=== PATIENT | male | born 1935 | race Caucasian/White ===

== ENCOUNTER 2016-05-03 10:55 | Inpatient (IN) | payer MEDICARE, BC ==
[2016-05-03] VITALS (9 sets, daily range): BP systolic 117–132; BP diastolic 61–78; BMI 16.7
[~2016-05-03] VITALS: Ht 172.7 cm; Wt 49.9 kg
[~2016-05-03 10:55] MED LIST: PERCOCET 5-3251 TAB PO; REVLIMID25 MG PO; ROBAXIN-750750 MG PO; ULTRAM50 MG PO; XANAX0.25 MG PO; ZYLOPRIM300 MG PO
[2016-05-03 11:28] LABS: APPEARANCE CLOUDY (CLEAR); BILIRUBIN 1+ (NEGATIVE); COLOR DK YELLOW (YELLOW); GLUCOSE NEGATIVE (NEGATIVE); KETONE NEGATIVE (NEGATIVE); LEUKOCYTE ESTERASE NEGATIVE (NEGATIVE); NITRITE NEGATIVE (NEGATIVE); PROTEIN TRACE mg/dL (NEGATIVE); RED CELLS - URINE 0-5 /hpf (0-5); SPECIFIC GRAVITY 1.015 (1.005-1.020); UROBILINOGEN NORMAL (NORMAL); WHITE CELLS - URINE NSEEN /hpf (0-5)
[2016-05-03 12:19] LABS: BASOPHILS 0 % (0.0-2.0); EOSINOPHILS 0.2 % (0-7); HEMOGLOBIN 8.4 g/dL (13.5-17.5); LYMPHOCYTES 14.1 % (15-50); MCH 34.3 pg (26.0-34.0); MCHC 32.3 g/dL (31.0-37.0); MCV 106.1 fL (80.0-100.0); MEAN PLATELET VOLUME 9.5 fL (7.4-10.4); MONOCYTES 14.6 % (2-11); NEUTROPHILS 71.1 % (40-80); RBC 2.45 10x6/uL (4.20-6.10); RDW 24.5 % (11.5-14.5); WBC 4.2 10x3/uL (4.8-10.8)
[2016-05-03 12:20] LABS: PLATELET COUNT 159 10x3/uL (130-400)
[2016-05-03 12:53] LABS: ALBUMIN 1.9 g/dL (3.4-5.0); ALKALINE PHOSPHATASE 150 U/L (46-116); ALT (SGPT) 22 U/L (10-68); BILIRUBIN - TOTAL 1.36 mg/dL (0.2-1.3); CALC OSMOLALITY 274 mosm/kg (275-300); CALCIUM 6.9 mg/dL (8.5-10.1); CARBON DIOXIDE 25.1 mmol/L (21.0-32.0); CHLORIDE - SERUM 106 mmol/L (98-107); CREATININE - SERUM 0.9 mg/dL (0.6-1.3); GLUCOSE 85 mg/dL (74-106); PROTEIN - SERUM 7.3 g/dL (6.4-8.2); SODIUM 137 mmol/L (136-145); UREA NITROGEN 19 mg/dL (7-18); eGFR NON AFRICAN AMERICAN 86 mL/min (90-120)
--- NOTE | 2016-05-03 16:00 | NUR ---
PT REC'D TO ROOM FROM ER VIA WC, ACCOMPANIED BY ER STAFF, ABLE TO AMBULATE FROM WC TO BED WITHOUT ISSUES. AAOX4. NO COMPLAINTS OF PAIN. PT IS VERY THIN, BUT HAS +2 PITTING EDEMA TO BILATERAL ANKLES AND FEET. BED LOW, CALL LIGHT IN REACH, DENIES NEEDS.
--- NOTE | 2016-05-03 18:00 | NUR ---
PROVIDED PT WITH SANDWICH AND WATER.
--- NOTE | 2016-05-03 19:25 | NUR ---
RECIEVED SHIFT REPORT. PT IS LAYING IN BED. ALERT AND ORIENTED AND ABLE TO VERBALIZE NEEDS. IV IS PATENT AND FLUIDS ARE RUNNING PER ORDER. PT IS AMBULATORY WITH ASSISTANCE. DE LEÓN IS DRAINING URINE BY GRAVITY. PT DENIES ANY PAIN AT THIS TIME. NO NEEDS ARE VERBALIZED AT THIS TIME. WILL CONTINUE TO MONITOR. SIDE RAILS ARE UP X 2. BED IS IN LOWEST POSITION. CALL LIGHT IS WITHIN REACH.
--- NOTE | 2016-05-03 19:54 | NUR ---
2ND IV SITED TO RT WRIST WITH 20 GUAGE IV. X2 ATTEMPTS WITH 20 GUAGE IV NEEDLE. TEGADERM APPLIED, DATED, AND SECURED WITH TAPE. PT TOLERATED WELL.
--- NOTE | 2016-05-03 21:16 | NUR ---
SHIFT ASSESSMENT COMPLETED. NIGHT MEDS GIVEN WITH NO PROBLEMS. NO NEEDS ARE VOICED. WILL MONITOR. SIDE RAILS X 2. BED LOW. CALL LIGHT IN REACH.
--- NOTE | 2016-05-03 21:20 | NUR ---
1ST UNIT PRBC'S INFUSING. VSS. WILL MONITOR FOR SIGNS OF REACTION. SIDE RAILS X 2. BED LOW. CALL LIGHT IN REACH.
--- NOTE | 2016-05-03 21:35 | NUR ---
PT REMAINS WITHOUT REACTION AT THIS TIME. VSS. WILL MONITOR. SIDE RAILS X 2. BED LOW. CALL LIGHT IN REACH.
--- NOTE | 2016-05-03 23:50 | NUR ---
1ST UNIT PRBC'S INFUSED AND LINE FLUSHING. PT REMAIND WITHOUT REACTION. VSS. WILL MONITOR. SIDE RAILS X 2. BED LOW. CALL LIGHT IN REACH.
[2016-05-04] VITALS (12 sets, daily range): BP systolic 103–137; BP diastolic 52–86; Ht 172.7 cm; Wt 49.9 kg
--- NOTE | 2016-05-04 00:50 | NUR ---
2ND UNIT PRBC'S INFUSING. VSS. PT WITHOUT REACTION. WILL MONITOR. SIDE RAILS X 2. BED LOW. CALL LIGHT IN REACH.
[2016-05-04 07:00] LABS: HEMATOCRIT 28.6 % (42.0-54.0); HEMOGLOBIN 9.3 g/dL (13.5-17.5); MCH 32.4 pg (26.0-34.0); MCHC 32.5 g/dL (31.0-37.0); MEAN PLATELET VOLUME 9.9 fL (7.4-10.4); RBC 2.87 10x6/uL (4.20-6.10); RDW 24.7 % (11.5-14.5)
[2016-05-04 07:16] LABS: CARBON DIOXIDE 21.5 mmol/L (21.0-32.0); CHLORIDE - SERUM 112 mmol/L (98-107); CREATININE - SERUM 0.7 mg/dL (0.6-1.3); GLUCOSE 71 mg/dL (74-106); SODIUM 140 mmol/L (136-145); eGFR NON AFRICAN AMERICAN > 90 mL/min (90-120)
[2016-05-04 07:17] LABS: MCV 99.7 fL (80.0-100.0); PLATELET COUNT 107 10x3/uL (130-400); WBC 2.8 10x3/uL (4.8-10.8)
[2016-05-04 07:59] LABS: CALC OSMOLALITY 276 mosm/kg (275-300); CALCIUM 6.3 mg/dL (8.5-10.1); POTASSIUM - SERUM 3.7 mmol/L (3.5-5.1); UREA NITROGEN 13 mg/dL (7-18)
--- NOTE | 2016-05-04 08:29 | NUR ---
AWAKE AND ALERT. ORIENTED X3. NO C/O AT THIS TIME. LUNGS ARE CLEAR BILATERALLY, REPORTS OCCASSIONAL DRY COUGH. SKIN IS INTACT WITHOUT REDNESS. BILATERAL LOWER EXTREMETIES WITH 2-3 PLUS EDEMA. WILL MONITOR. SL TO RIGHT FOREARM PATENT WITHOUT REDNESS AND IV TO LEFT AC PATENT WTIHOUT REDNESS AT INSERTION SITE. SITTING UP IN BED EATING BREAKFAST. DE LEÓN PATENT WITH SMALL AMOUNT OF DARK TEA COLORED URINE.
[2016-05-04 08:39] LABS: EOSINOPHILS 1 % (0-7); LYMPHOCYTES 23 % (15-50); MONOCYTES 3 % (2-11); NEUTROPHILS 70 % (40-80); PLATELET ESTIMATE DECREASED; ROULEAUX OCC
--- NOTE | 2016-05-04 10:29 | NUR ---
RESTING QUIETLY IN BED. C/O BEING BORED. DENIES NEEDS.
--- NOTE | 2016-05-04 13:13 | NUR ---
Patient Name: NEGRO HERNANDEZ Admission Status: ER Accout number: [id number] Admission Date: 05-03-2016 : 1935 Admission Diagnosis: Attending: MACRINA Current LOS: 1 Anticipated DC Date: 05-06-2016 Planned Disposition: Home with Home Health Primary Insurance: MEDICARE A & B Discharge Planning Comments: CM MET WITH PATIENT REGARDING D/C NEEDS AND PLANS. PATIENT STATED HE LIVES AT HOME WITH HIS SPOUSE (KARLENE) AND SHE WILL TRANSPORT HIM HOME AT DISCHARGE. PATIENT HAS NO STEPS TO ENTER HOME AND HAS 1 FLIGHT W/RAILS TO BASEMENT. PATIENT STATED HE IS INDEPENDENT WITH HIS CARE AND HAS A ROLATOR WALKER, AND SHOWER CHAIR AT HOME. PATIENT IS CURRENT WITH HOME HEALTH BUT COULD NOT REMEMBER NAME. CM CALLED PATIENTS SPOUSE AND SHE DID NOT ANSWER PHONE AND NO WAY TO LEAVE [facility]. CM WILL CALL TOMORROW AND FIND CURRENT HOME HEALTH. THEY ARE CLOSED TODAY. PATIENTS PCP IS DR. ALEGRIA AND PHARMACY IS [facility]. CM WILL CONTINUE TO FOLLOW PATIENT WITH DC NEEDS AND PLANS. PCP DR. ALEGRIA [facility] KARLENE () [phone] Irrigation Equipment Mechanic: Venessabetsy Phelps Is the patient Alert and Oriented? Yes 0 * How many steps to enter\exit or inside your home? FLIGHT W/R 0 * PCP DR. ALEGRIA 0 * Pharmacy [facility] 0 * Preadmission Environment Home with Family 0 * ADLs Independent 0 * Equipment Rolling Walker Shower Chair 0 * List name and contact numbers for known caregivers / representatives who currently or will assist patient after discharge: KARLENE () [phone] 0 * Community resources currently utilized Home Health 0 * Please name any agencies selected above. PATIENT CANT REMEMBER NAME CM WILL CALL WEDNESDAY WHEN HH OPEN 0 * Additional services required to return to the preadmission environment? Yes 0 * Can the patient safely return to the preadmission environment? Yes 0 * Has this patient been hospitalized within the prior 30 days at any hospital? No 0 Grand Total: 0
--- NOTE | 2016-05-04 13:30 | NUR ---
ATE MOST OF LUNCH. UP TO BR WITH ONE PERSON MIN ASSIST.
--- NOTE | 2016-05-04 14:12 | NUR ---
HAD GOOD BM. SKIN CARE PER STAFF. STAGE 2 TO COCCYX NOTED WELL SUPERFICIAL STAGE 2 TO EACH BUTTOCK. BEAUDRO APPLIED TO ALL AREAS AND MEPELEX APPLIED TO COCCYX. WILL MONITOR. ASSISTED WITH BATH AT THIS TIME.
--- NOTE | 2016-05-04 18:26 | NUR ---
ATE ALMOST ALL OF DINNER. NO C/O AT THIS TIME. DENIES NEEDS. NO CHANGES NOTED.
--- NOTE | 2016-05-04 19:46 | NUR ---
SCHEDULED FLOMAX ADMINISTERED AT THIS TIME. DE LEÓN PATENT AND DRAINING TEA COLORED URINE. DENIES PAIN OR MUSCLE SPASMS AT THIS TIME. ASSESSMENT PERFORMED PER FLOWSHEET. PT IS ADAMENT ABOUT BEING DISCHARGED HOME TOMORROW. IV TO LEFT AC PATENT WITH PRESCRIBED FLUID INFUSING. DENIES FURTHER NEEDS, CALL LIGHT IN REACH, SRX2 AND BED IN LOW POSITION AND LOCKED. WILL CONTINUE WITH PLAN OF CARE.
--- NOTE | 2016-05-04 22:49 | NUR ---
LYING SUPINE WITH EYES CLOSED AND RESPIRATIONS EVEN AND NON LABORED. CALL LIGHT IN REACH, WILL CONTINUE WITH PLAN OF CARE.
[2016-05-05] VITALS: BP 123/71
--- NOTE | 2016-05-05 03:00 | NUR ---
DE LEÓN CARE PROVIDED WITH SOAP AND WATER AT THIS TIME. PT TOLERATED WITHOUT COMPLAINTS. HOPEFUL FOR A DISCHARGE HOME TODAY. CALL LIGHT IN REACH, DENIES NEEDS. WILL CONTINUE WITH PLAN OF CARE.
[2016-05-05 04:00] VITALS: BP 131/74
[2016-05-05] MEDS ORDERED: REVLIMID25 MG PO (06:51)
[2016-05-05] MEDS ORDERED: ULTRAM50 MG PO (06:51)
[2016-05-05] MEDS ORDERED: ROBAXIN-750750 MG PO (06:51)
[2016-05-05] MEDS ORDERED: XANAX0.25 MG PO (06:51)
[2016-05-05] MEDS ORDERED: ZYLOPRIM300 MG PO (06:51)
[2016-05-05] MEDS ORDERED: PERCOCET 5-3251 TAB PO (06:51)
[2016-05-05 07:20] LABS: BASOPHILS 1.1 % (0.0-2.0); HEMATOCRIT 30.1 % (42.0-54.0); HEMOGLOBIN 9.8 g/dL (13.5-17.5); LYMPHOCYTES 15.5 % (15-50); MCH 32.5 pg (26.0-34.0); MCHC 32.6 g/dL (31.0-37.0); MCV 99.7 fL (80.0-100.0); MEAN PLATELET VOLUME 9.2 fL (7.4-10.4); MONOCYTES 15.5 % (2-11); NEUTROPHILS 64.9 % (40-80); PLATELET COUNT 93 10x3/uL (130-400); RBC 3.02 10x6/uL (4.20-6.10); WBC 2.6 10x3/uL (4.8-10.8)
--- NOTE | 2016-05-05 07:30 | NUR ---
AWAKE AND ALERT. ORIENTED X3. DE LEÓN D/C WITH TIP INTACT WITHOUT DIFFICULTY. LUNGS ARE CLEAR BILATERALLY, NO COUGH NOTED. SKIN IS INTACT WITHOUT REDNESS EXCEPT SMALL STAGE 2 TO COCCYX AND ONE SUPERFICIAL STAGE [address] BUTTOCK. MEPELEX IN PLACE TO SAME. SL TO RIGHT FOREARM PATENT WITHOUT REDNESS. IV TO LEFT AC PATENT WITHOUT REDNESS AT INSERTION SITE. DENIES NEEDS. CONCERNED ABOUT HAVEING LEAKAGE ON THE WAY HOME. WILL OFFER BRIEF. DENIES NEEDS.
[2016-05-05 07:45] LABS: ALKALINE PHOSPHATASE 120 U/L (46-116); ALT (SGPT) 20 U/L (10-68); CALC OSMOLALITY 276 mosm/kg (275-300); CARBON DIOXIDE 21.6 mmol/L (21.0-32.0); CHLORIDE - SERUM 112 mmol/L (98-107); CREATININE - SERUM 0.6 mg/dL (0.6-1.3); GLUCOSE 88 mg/dL (74-106); POTASSIUM - SERUM 3.4 mmol/L (3.5-5.1); PROTEIN - SERUM 5.6 g/dL (6.4-8.2); SODIUM 140 mmol/L (136-145); UREA NITROGEN 11 mg/dL (7-18); eGFR NON AFRICAN AMERICAN > 90 mL/min (90-120)
[2016-05-05 07:48] LABS: ALBUMIN 1.4 g/dL (3.4-5.0)
[2016-05-05 07:50] LABS: CALCIUM 5.7 mg/dL (8.5-10.1)
[2016-05-05 07:54] VITALS: BP 131/74
--- NOTE | 2016-05-05 08:20 | NUR ---
CM REASSESSMENT NOTE: PATIENT IS CURRENT WITH [facility].
--- NOTE | 2016-05-05 10:26 | NUR ---
DR. ALEGRIA HERE. RESTING IN BED. DENIES NEEDS. 1-2 PLUS EDEMA NOTED TO BILATERAL LE.
--- NOTE | 2016-05-05 11:00 | NUR ---
BLADDER SCAN SHOWS 325cc OF URINE. WILL NOTIFY DR. ALEGRIA. HAD LARGE SOFT FORMED STOOL WHILE UP. SKIN CARE PER STAFF.
[2016-05-05 11:52] VITALS: BP 139/76
--- NOTE | 2016-05-05 12:11 | NUR ---
16F DE LEÓN PLACED USING STERILE TECHNIQUE. ENTIRE CONTENTS OF KIT UTILIZED. PATIENT TOLERATED WITHOUT DIFFICULTY. 400cc CLEAR YELLOW URINE RETURNED. INSTRUCTED PATIENT ON HOW TO CLAMP AND UNCLAMP DE LEÓN AND WHEN. ALL QUESTIONS ANSWERED.
--- NOTE | 2016-05-05 12:14 | NUR ---
SPOKE WITH DR ALEGRIA ON PHONE REGARDING DISCHARGE MEDICATIONS. STATES THE MEDS ARE HOME MEDS AND HE IS NOT DISPENSING ANY MORE
--- NOTE | 2016-05-05 13:41 | NUR ---
CM REASSESSMENT NOTE: PATIENT IS DISCHARGING HOME TODAY-CURRENT WITH [facility]. PATIENTS FAMILY WILL BE DRIVING HIM HOME.
--- NOTE | 2016-05-05 13:45 | NUR ---
DISCHARGED TO HOME AMBULATORY WITH FAMILY FRIEND. DISCHARGE INSTRUCTIONS GIVEN BOTH VERBALLY AND WRITTEN. ALL QUESTIONS ANSWERED. PATIENT VERBALILZED UNDERSTANDING OF SAME. NO NEW PRESCRIPTIONS NEEDED. SL TO RIGHT FOREARM AND IV TO LEFT AC D/C WITH CATHETERS INTACT.
== END 2016-05-05 13:45 | disposition home health service (06) | DRG 696 ==
LOC: D.ER 10:55 → D.MS 15:36 → OBSVTIME 15:36 → D.MS 05-04 12:53
PROVIDERS: Emergency Medicine; ADMIT Legal Medicine
DX: R33.9 Retention of urine, unspecified (principal); C90.00 Multiple myeloma not having achieved remission; R53.1 Weakness; E83.51 Hypocalcemia; E87.6 Hypokalemia; E88.09 Other disorders of plasma-protein metabolism, not elsewhere classified

== ENCOUNTER 2016-07-15 13:15 | Observation (INO) | payer MEDICARE, BC ==
[~2016-07-15] VITALS: Ht 172.7 cm; Wt 52.2 kg
--- NOTE | 2016-07-15 15:32 | NUR ---
STARTED IV TO RIGHT FOREARM X'S 1 ATTEMPT 20G.
[2016-07-15 15:42] VITALS: BP 125/88; BMI 17.5
[2016-07-15 15:47] VITALS: BP 137/89
--- NOTE | 2016-07-15 19:51 | NUR ---
PATIENT RESTING IN BED AND DENIES NEEDS AT THIS TIME. BED IN LOWEST POSITION AND CALL LIGHT WITHIN REACH. ENCOURAGED PATIENT TO CALL IF HE HAS OTHER NEEDS.
[2016-07-15 20:00] VITALS: BP 126/78
[2016-07-16] VITALS: BP 113/65; BP 126/78
[2016-07-16 04:00] VITALS: BP 137/71
[2016-07-16 08:15] VITALS: BP 138/93
--- NOTE | 2016-07-16 08:15 | NUR ---
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 OBEYS ALL COMMANDS. NO DISTRESS NTOED CALL LIGHT IN REACH SIDE RAILS UP X 2
--- NOTE | 2016-07-16 09:00 | NUR ---
PATIENT IS AWAKE, ALERT AND ORIENTED X'S 4. RESPIRATIONS ARE EVEN AND UNLABORED. PATIENT HAS DE LEÓN CATHETER DRAINING TO GRAVITY. BED IS IN LOWEST POSITION, CALL LIGHT IN REACH. BED RAILS UP X'S 2. PATIENT DENIES NEEDS.
--- NOTE | 2016-07-16 12:24 | NUR ---
LYING IN BED SEMIFOWLERS POSITION NOTED. NO DISTRESS NOTED CALL LIGHT IN REACH SIDE RAILS UP X 2
[2016-07-16 12:31] VITALS: BP 138/98
[2016-07-16 12:37] VITALS: Ht 172.7 cm; Wt 52.2 kg
[2016-07-16 16:02] VITALS: BP 131/80
--- NOTE | 2016-07-16 18:11 | NUR ---
PT COMPLAINED TODAY OF NOT BEING ABLE TO SUPPORT WT OF HIS HEAD ASKED IF WE HAD SOMETHING THAT COULD HELP GIVEN SOFT COLLAR PT STATES THAT IT DID NOT HELP WHEN HE WAS OOB TO SUPPORT WT OF HIS HEAD.
--- NOTE | 2016-07-16 19:30 | NUR ---
PT RECEIVED SITTING UP IN BED WATCHING TELEVISION. PT ALERT AND ORIENTED X3. BREATH SOUNDS CLEAR BILATERALLY. BOWEL SOUNDS ACTIVE IN ALL 4 QUADRANTS. ABD SOFT AND NONTENDER UPON PALPATION. DE LEÓN CATHETER IN PLACE WITH CLEAR STRAW RETURN NOTED. HAND ROOFER APPRENTICE EQUAL. IV TO RIGHT FOREARM, WITH NS @ 50, NOTED TO BE PATENT. PT DENIES PAIN OR NEEDS AT THIS TIME. CALL LIGHT AND H20 IN PT REACH. SIDE RAILS UP X2. BED IN LOW POSITION.
[2016-07-16 20:00] VITALS: BP 129/80
--- NOTE | 2016-07-16 21:30 | NUR ---
PT RESTING IN BED WITH EYES CLOSED. RESPIRATIONS EVEN AND UNLABORED. NO S/S OF DISTRESS NOTED. AROUSES TO VERBAL STIMULI. DENIES PAIN OR NEEDS AT THIS TIME. CALL LIGHT AND H2O IN PT REACH. SIDE RAILS UP X2. BED IN LOW POSITION.
--- NOTE | 2016-07-16 23:30 | NUR ---
PT RESTING IN BED WITH EYES CLOSED. NO S/S OF DISTRESS NOTED. RESPIRATIONS EVEN AND UNLABORED. PT ABLE TO VOICE NEEDS, NO COMPLAINTS OR NEEDS VOICED AT THIS TIME. CALL LIGHT AND H2O IN PT REACH. SIDE RAILS UP X2. BED IN LOW POSITION.
[2016-07-17] VITALS: BP 123/81
--- NOTE | 2016-07-17 03:30 | NUR ---
PT STATES, "I FEEL CONGESTED. WILL YOU LISTEN TO MY LUNGS?" AUSCULTATED BREATH SOUNDS, BREATH SOUNDS CLEAR BILATERALLY. PT STATES, "OH. I DRANK SOME WATER AND CHOKED ON IT FOR A SECOND." PT THEN STATES, "I THINK MY ATOMIZER MADE MY VOICE SOUND ROUGH. I'M GOING TO TALK TO THE DOCTOR ABOUT IT TOMORROW." PT DENIES NEEDS AT THIS TIME. CALL LIGHT AND H2O IN PT REACH. SIDE RAILS UP X2. BED IN LOW POSITION.
[2016-07-17 04:00] VITALS: BP 144/80
--- NOTE | 2016-07-17 04:00 | NUR ---
PATIENT SLEEPING WITH NO DISTRESS NOTED. AGREE WITH BUSINESS ADVISOR ASSESSMENT.
--- NOTE | 2016-07-17 05:30 | NUR ---
PT RESTING IN BED WITH EYES CLOSED. NO S/S OF DISTRESS NOTED. RESP EVEN AND UNLABORED. PT ABLE TO VOICE NEEDS, NO COMPLAINTS OR NEEDS VOICED AT THIS TIME. CALL LIGHT AND H2O IN REACH. BED IN LOW POSITION. SIDE RAILS UP X2.
[2016-07-17 06:38] LABS: HEMATOCRIT 35.9 % (42.0-54.0); HEMOGLOBIN 11.9 g/dL (13.5-17.5); MCH 33.6 pg (26.0-34.0); MCHC 33.1 g/dL (31.0-37.0); MCV 101.4 fL (80.0-100.0); MEAN PLATELET VOLUME 9.6 fL (7.4-10.4); PLATELET COUNT 91 10x3/uL (130-400); RBC 3.54 10x6/uL (4.20-6.10); RDW 17.3 % (11.5-14.5); WBC 2.7 10x3/uL (4.8-10.8)
[2016-07-17 06:56] LABS: ALBUMIN 2.1 g/dL (3.4-5.0); ALKALINE PHOSPHATASE 77 U/L (46-116); ALT (SGPT) 166 U/L (10-68); BILIRUBIN - TOTAL 0.79 mg/dL (0.2-1.3); CALC OSMOLALITY 275 mosm/kg (275-300); CALCIUM 7.4 mg/dL (8.5-10.1); CARBON DIOXIDE 25.5 mmol/L (21.0-32.0); CHLORIDE - SERUM 108 mmol/L (98-107); CREATININE - SERUM 0.7 mg/dL (0.6-1.3); GLUCOSE 77 mg/dL (74-106); MAGNESIUM - SERUM 1.7 mg/dL (1.8-2.4); POTASSIUM - SERUM 3.6 mmol/L (3.5-5.1); PROTEIN - SERUM 6.5 g/dL (6.4-8.2); SODIUM 139 mmol/L (136-145); UREA NITROGEN 10 mg/dL (7-18); eGFR NON AFRICAN AMERICAN > 90 mL/min (90-120)
--- NOTE | 2016-07-17 08:05 | NUR ---
PT. AOX4 RESP EVEN AND NONLABORED PT. DENIES NEEDS AT THIS TIME IV TO RIGHT FOREARM PATENT AND INTACT BED AT LOWEST SETTING AND CALL LIGHT WITHIN REACH WILL CONTINUE TO MONITOR
[2016-07-17 08:09] VITALS: BP 153/81
[2016-07-17 08:16] LABS: EOSINOPHILS 3 % (0-7); LYMPHOCYTES 28 % (15-50); MONOCYTES 4 % (2-11); NEUTROPHILS 53 % (40-80); PLATELET ESTIMATE DECREASED; ROULEAUX OCC
[2016-07-17 12:12] VITALS: BP 124/79
[2016-07-17 15:48] VITALS: BP 130/86
--- NOTE | 2016-07-17 19:30 | NUR ---
PT RECEIVED RESTING IN BED WITH EYES CLOSED. PT AROUSES TO VERBAL STIMULI. BREATH SOUNDS CLEAR BILATERALLY. RESPIRATIONS EVEN AND UNLABORED. BOWEL SOUNDS ACTIVE IN ALL FOUR QUADRANTS. ABD SOFT AND NONTENDER UPON PALPATION. PT STATES LAST BM WAS TODAY. DE LEÓN IN PLACE, CLEAR STRAW COLORED RETURN NOTED. IV TO RIGHT FOREARM, NS @ 50, NOTED TO BE PATENT. NO REDNESS OR EDEMA NOTED TO IV SITE. IV DRESSING CLEAN, DRY, AND INTACT. PT DENIES PAIN OR NEEDS AT THIS TIME. CALL LIGHT AND H2O IN PT REACH. SIDE RAILS UP X2. BED IN LOW POSITION.
[2016-07-17 20:00] VITALS: BP 122/80
--- NOTE | 2016-07-17 23:30 | NUR ---
PT RESTING IN BED WITH EYES CLOSED. NO S/S OF DISTRESS NOTED. RESP EVEN AND UNLABORED. PT ABLE TO VOICE NEEDS, NO COMPLAINTS OR NEEDS VOICED AT THIS TIME. CALL LIGHT AND H2O IN PT REACH. SIDE RAILS UP X2. BED IN LOW POSITION.
[2016-07-18] VITALS: BP 123/69
[2016-07-18 04:00] VITALS: BP 126/73
--- NOTE | 2016-07-18 05:30 | NUR ---
PT RESTING IN BED WITH EYES CLOSED. NO S/S OF DISTRESS NOTED. RESP EVEN AND UNLABORED. PT ABLE TO VOICE NEEDS, NO COMPLAINTS OR NEEDS VOICED AT THIS TIME. CALL LIGHT AND H2O IN PT REACH. BED IN LOW POSITION. SIDE RAILS UP X2.
--- NOTE | 2016-07-18 07:37 | NUR ---
PT. AWAKE AND ALERT IN BED RESP EVEN AND NONLABORED PT. DENIES NEEDS AT THIS TIME IV TO RIGHT FOREARM PATENT AND INTACT BED AT LOWEST SETTING CALL LIGHT WITHIN REACH WILL CONTINUE TO MONITOR
[2016-07-18 08:30] VITALS: BP 114/74
[2016-07-18 09:16] LABS: BASOPHILS 1.3 % (0.0-2.0); EOSINOPHILS 0.3 % (0-7); HEMATOCRIT 35.2 % (42.0-54.0); HEMOGLOBIN 11.9 g/dL (13.5-17.5); IMMATURE GRANULOCYTES 0.3 % (0-5); LYMPHOCYTES 13.4 % (15-50); MCH 33.6 pg (26.0-34.0); MCHC 33.8 g/dL (31.0-37.0); MEAN PLATELET VOLUME 8.5 fL (7.4-10.4); MONOCYTES 11.8 % (2-11); NEUTROPHILS 72.9 % (40-80); PLATELET COUNT 90 10x3/uL (130-400); RBC 3.54 10x6/uL (4.20-6.10); RDW 17.1 % (11.5-14.5)
[2016-07-18 09:18] LABS: MCV 99.4 fL (80.0-100.0); WBC 3.8 10x3/uL (4.8-10.8)
[2016-07-18 09:35] LABS: ALBUMIN 2.1 g/dL (3.4-5.0); ALKALINE PHOSPHATASE 80 U/L (46-116); ALT (SGPT) 173 U/L (10-68); BILIRUBIN - TOTAL 0.71 mg/dL (0.2-1.3); CALC OSMOLALITY 272 mosm/kg (275-300); CALCIUM 7.2 mg/dL (8.5-10.1); CHLORIDE - SERUM 106 mmol/L (98-107); CREATININE - SERUM 0.7 mg/dL (0.6-1.3); GLUCOSE 102 mg/dL (74-106); MAGNESIUM - SERUM 1.6 mg/dL (1.8-2.4); PHOSPHOROUS 2.7 mg/dL (2.5-4.9); POTASSIUM - SERUM 3.7 mmol/L (3.5-5.1); PROTEIN - SERUM 6.6 g/dL (6.4-8.2); SODIUM 137 mmol/L (136-145); UREA NITROGEN 10 mg/dL (7-18); eGFR NON AFRICAN AMERICAN > 90 mL/min (90-120)
[2016-07-18 12:54] VITALS: BP 141/90
[2016-07-18 17:00] VITALS: BP 129/78
--- NOTE | 2016-07-18 19:55 | NUR ---
REC'D IN BED AWAKE AND ALERT. RESP EVEN AND UNLABORED WITH NO DISTRESS NOTED.CAN EXPRESS NEED AND WANTS. FENTANYL PATCH TO RIGHT HIP. C/O HIP PAIN RATING 4/10. ASSESSMENT COMPLETED. WILL CONTINUE TO OBSERVE FOR NEEDS. C/L IN REACH AT BEDSIDE.
[2016-07-18 20:44] VITALS: BP 143/97
[2016-07-19 04:00] VITALS: BP 136/91
--- NOTE | 2016-07-19 07:37 | NUR ---
AWAKE AND ALERT AT THIS TIME. VITAL SIGNS BEING OBTAINED BY LEGAL ASSISTANT. CALL LIGHT IN REACH. SRX2 WITH BED IN LOWEST POSITION AND WHEELS LOCKED. DE LEÓN CATHETER PATENT AND DRAINING TO GRAVITY. CALL LIGHT IN REACH, WILL CONTINUE WITH PLAN OF CARE.
[2016-07-19 07:57] VITALS: BP 149/97
--- NOTE | 2016-07-19 09:35 | NUR ---
SCHEDULED MEDICATIONS ADMINISTERED AT THIS TIME. TAKEN ONE AT A TIME WITH SIPS OF WATER. ASSESSMENT PERFORMED PER FLOWSHEET. PT HOPEFUL THAT HE WILL BE DISCHARGED HOME TODAY. NOTIFIED BY RAKESH WESTSENIOR TELECOMMUNICATIONS SPECIALIST. WILL CONTINUE WITH PLAN OF CARE, CALL LIGHT IN REACH.
[2016-07-19] MEDS ORDERED: LEVAQUIN500 MG PO (12:06)
[2016-07-19 12:12] VITALS: BP 148/98
--- NOTE | 2016-07-19 14:30 | NUR ---
DISCHARGE INSTRUCTIONS REVIEWED WITH PT'S . IV TO RIGHT FOREARM D/C WITH CATH TIP INTACT. PROVIDED WITH NEW PRESCRIPTION. TO D/C HOME WITH AT THIS TIME.
== END 2016-07-19 14:30 | disposition home or self-care (01) ==
LOC: D.MS 13:15 → OBSVTIME 13:15 → D.MS 07-19 14:30
PROVIDERS: ADMIT Legal Medicine
DX: E83.51 Hypocalcemia (principal); C90.00 Multiple myeloma not having achieved remission; R13.10 Dysphagia, unspecified; R53.1 Weakness; B37.0 Candidal stomatitis; R33.9 Retention of urine, unspecified; M85.80 Other specified disorders of bone density and structure, unspecified site; G93.9 Disorder of brain, unspecified; J32.9 Chronic sinusitis, unspecified

== ENCOUNTER 2016-07-21 15:27 | Inpatient (IN) | payer MEDICARE, BC ==
[~2016-07-21] VITALS: Ht 170.2 cm; Wt 57.2 kg
--- NOTE | ~2016-07-21 | HEMODYNAMI ---
PATIENT:NEGRO HERNANDEZ MEDICAL RECORD: [id number] : 34 LOCATION:[place] [address] ADMISSION DATE: 07/21/16 Generatedon:07/22/201616:29 Patient name: NEGRO HERNANDEZ Patient #: [id number] SSN: D OB: 1935 Date of study: 07/22/2016 Page: Of Hemodynamic Procedure Report Patient Data Patient Demographics Procedure consent was obtained First Name: NEGRO Gender: Male Last Name: DAVID : 1935 Middle Initial: A Age: 80 year(s) Patient #: [id number] Race: Additional ID: [id number] Contact details Address: [address] [place] [address] State: [place] City: [place] Zip code: [address] Past Medical History Allergies Allergen Reaction Date Comments Reported Other allergy 07/22/2016 PCN,Sulfa Admission Admission Data Admission Date: 07/21/2016 Admission Time: 21:56 Room #: [facility] Height (in.): 67 BSA: 1.66 (m2) Height (cm.): 170.18 BMI: 19.73 (kg/m2) Weight (lbs.): 125.99 Weight (kg.): 57.15 Lab Results Lab Result Date: 07/22/2016 Lab Result Time: 10:40 Biochemistry Name Units Result Min Max BUN mg/dl 10 --(-*--)-- 7 18 Creatinine mg/dl 0.7 --(*---)-- 0.6 1.3 CBC Name Units Result Min Max Hematocrit % 31.7 *-(----)-- 42 54 Hemoglobin g/dl 10.8 *-(----)-- 13.5 17.5 Procedure Procedure Types Cath Procedure Diagnostic Procedure [facility] Procedure Description Procedure Date Procedure Date: 07/22/2016 Procedure Start Time: 15:20 Procedure Staff Name Function Barrett Gaitan MD Performing Physician Frannie Davies RT Scrbryan Akbar RN Nurse Pedrito Bran RT Monitor Procedure Medications Medication Administration Route Dosage Oxygen NC 2 l/min Heparin Flush Bag added to field 2 bags (1000units/500ml NS) Lidocaine 2% added to field 20 Versed I.V. 0.25 mg Fentanyl I.V. 25 mcg Versed I.V. 0.25 mg Fentanyl I.V. 25 mcg Hemodynamics Rest BSA: 1.66 (m2) HGB: 10.8 (g/dl) O2 Consumption: Estimated: 222.32 (ml/min) O2 Co nsumption indexed: Estimated:133.93 (ml/min/m) Heart Rate: 123 (bpm) Snapshots Pre Cath Intra NCS Post Cath Vital Signs Time Heart Resp SPO2 etCO2 EC5qawt NIBP (mmHg) Rhythm Pain Sedatio n Rate (ipm) (%) (mmHg) (mmHg) Status Level (bpm) 15:46:38 102 16 98 0 0 173/148(163) ST 0 (11) 10(A) , No pain 15:50:56 102 34 96 0 0 166/118(147) ST 0 (11) 10(A) , No pain 15:55:08 122 32 97 0 0 156/112(138) ST 0 (11) 10(A) , No pain 15:59:22 124 30 96 0 0 158/114(135) ST 0 (11) 10(A) , No pain 16:03:38 126 29 95 0 0 164/127(146) ST 0 (11) 10(A) , No pain 16:07:56 115 26 95 0 0 151/106(127) ST 0 (11) 10(A) , No pain 16:12:08 115 26 95 0 0 158/107(133) ST 0 (11) 10(A) , No pain 16:16:22 112 33 95 0 0 153/109(131) ST 0 (11) 10(A) , No pain 16:21:21 111 37 [address] 0 (11) 10(A) , No pain 16:21:43 110 20 95 0 0 155/103(133) ST 0 (11) 10(A) , No pain 16:25:57 115 23 95 0 0 166/117(142) ST 0 (11) 10(A) , No pain Medications Time Medication Route Dose Verified Delivered Reason Notes Eff ectiveness by by 15:46:00 Oxygen NC 2 Barrett Fraserca For l/min Kandy Akbar RN bradycardia 15:46:12 Heparin Flush added 2 Barrett Hyde used for Bag to bags Kandy Gaitan MD procedure (1000units/500ml field NS) 15:46:19 Lidocaine 2% added 20ml Barrett Barrett used for to vial Kandy Gaitan MD procedure field 16:19:08 Versed I.V. 0.25 Barrett Jen for mg Kandy Akbar RN sedation 16:19:15 Fentanyl I.V. 25 Barrett Jen for mcg Kandy Akbar RN sedation 16:22:16 Versed I.V. 0.25 Barrett Jen for mg Kandy Akbar RN sedation 16:22:19 Fentanyl I.V. 25 Barrett Jen for mcg Kandy Akbar RN sedation Procedure Log Time Note 15:29:03 Frannie Counts RT(R) sent for patient. Start room use. 15:31:24 Time tracking: Regular hours 15:31:27 Plan of Care:Hemodynamics will remain stable., Cardiac rhythm will remain stable., Comfort level will be maintained., Respiratory function will remain adequate., Patient/ family verbilizes understanding of procedure., Procedure tolerated without complication., Recovers from procedure without complications.. 15:36:17 Patient received from CVICU to CCL 1 Alert and oriented. Tansferred to table in Supine position. 15:36:19 Warm blankets applied, and domenica hugger turned on for patient comfort. 15:36:19 Correct patient and procedure confirmed by team. 15:36:21 Signed procedure consent form obtained from patient. 15:36:22 ECG and BP/O2 sat monitors applied to patient. 15:41:54 Patient Weight : 125.99 kg 15:42:01 Patient Height : 67 cm 15:45:33 Vital chart was started 15:45:35 Full Disclosure recording started 15:46:00 Oxygen 2 l/min NC was administered by Jen Akbar RN; For bradycardia; 15:46:12 Heparin Flush Bag (1000units/500ml NS) 2 bags added to field was administered by Barrett Gaitan MD; used for procedure; 15:46:19 Lidocaine 2% 20ml vial added to field was administered by Barrett Gaitan MD; used for procedure; 15:51:26 Baseline sample Acquired. 15:51:53 Rhythm: sinus tachycardia 15:52:56 H&P Date Dictated: 07/22/2016 Within 30 days and on chart.. 15:52:57 Pre-procedure instructions explained to patient. 15:52:58 Pre-op teaching completed and patient verbalized understanding. 15:53:05 Family unavailable. 15:53:06 Patient NPO since Midnight. 15:53:19 Patient allergic to Other allergyPCN,Sulfa 15:53:25 Is the patient allergic to Iodine/contrast media? No. 15:53:26 Is patient on blood thinner?No 15:53:32 Patient diabetic? No. 15:53:34 Previous problem with sedation/anesthesia? No ? 15:53:35 Snore? Yes 15:53:37 Sleep apnea? No 15:53:41 Deviated septum? No 15:53:42 Opens mouth fully? Yes 15:53:43 Sticks out tongue? Yes 15:53:53 Airway obstruction? Yes soft tissue mass 15:53:56 Dentures? No ? 15:54:01 Pre procedure: right dorsailis pedis pulse 1+ Palpable, but thready & weak; easily obliterated 15:54:02 Patient pain scale 0/10 ?. 15:54:08 IV patent on arrival in right wrist with 0.9% NaCl at KVO. 15:55:19 Lab Result : BUN 10 mg/dl 15:55:19 Lab Result : Creatinine 0.7 mg/dl 15:55:19 Lab Result : Hemoglobin 10.8 g/dl 15:55:19 Lab Result : Hematocrit 31.7 % 15:55:22 Lab results completed and on chart. 15:55:25 Right groin area was prepped with chlora-prep and draped in sterile fashion 15:55:26 Alarms reviewed by R. N. 15:55:27 Sharps counted by scrub and verified by R.N. 15:55:35 Use device set Femoral Dx 15:55:36 Tegaderm 4 x 4 opened to sterile field. 15:55:39 Acist Hand Control opened to sterile field. 15:55:39 Acist Manifold opened to sterile field. 15:55:40 Acist Syringe opened to sterile field. 15:55:40 Bag Decanter opened to sterile field. 15:55:41 Medline Cath Pack opened to sterile field. 15:55:41 Terumo 5Fr [place] Sheath opened to sterile field. 15:55:42 St Kwabena 260cm J .035 wire opened to sterile field. 15:55:43 Diagnostic Infinity 5Fr Multipack catheter opened to sterile field. 15:56:36 Zero performed for pressure channel P1 15:56:53 Zero performed for pressure channel P1 16:17:46 Physician arrived 16:17:46 --------ALL STOP TIME OUT------ 16:17:47 Final Timeout: patient, procedure, and site verified with staff and physician. All members of the team are in agreement. 16:17:49 Right groin site verified by team. 16:17:52 Physical assessment completed. ASA score P 2 - A patient with mild systemic disease as per Barrett Gaitan MD. 16:17:58 Sedation plan: IV Moderate Sedation Versed, Fentanyl 16:19:08 Versed 0.25 mg I.V. was administered by Jen Akbar RN; for sedation; 16:19:15 Fentanyl 25 mcg I.V. was administered by Jen Akbar RN; for sedation; 16:22:16 Versed 0.25 mg I.V. was administered by Jen Akbar RN; for sedation; 16:22:19 Fentanyl 25 mcg I.V. was administered by Jen Akbar RN; for sedation; 16:28:09 Procedure stopped due to the Inability to injest anything. 16:28:20 Procedure type changed to Cath procedure, Diagnostic procedure, [facility] 16:28:41 Procedure ended.(Physican Out) 16:28:58 End room use (Document Last) 16:29:27 Vital chart was stopped Device Usage Item Name Manufacture Quantity Catalog Hospital Part Current Minimal Lo t# / Number Charge Number Stock Stock Serial# Code Tegaderm 4 1 [id number] 5 x 4 Acist Hand Acist 1 80488 709366 377064 738808 5 Control [employer] Inc Acist Acist 1 76657 271132 209513 155261 5 Manifold Medical Systems Inc Acist Acist 1 72238 305798 189387 677403 20 Syringe Medical Systems Inc Bag Microtek 1 2001S 815705 71319 818055 5 [employer] Medline Cardinal 1 [id number] 566860 37363 508361 5 Cath Pack Health Terumo 5Fr Terumo 1 [id number] 233229 373841 473914 [address] Kwabena 1 [id number] 759949 492423 071745 30 260cm J .035 wire Diagnostic Cardinal 1 [id number] 216685 37228 846561 30 Charitas 5Fr Multipack catheter Signature Audit Holley Stage Time Signature Unsigned Intra-Procedure 07/22/2016 Pedrito Bran 4:29:25 PM RT(R) Signatures Monitor : Pedrito Bran RT Signature : Date : Time : [place] [address] [place] [address]
[~2016-07-21 15:27] MED LIST changes: +LEVAQUIN500 MG PO
[2016-07-21 16:48] LABS: EOSINOPHILS 0.2 % (0-7); HEMATOCRIT 38.3 % (42.0-54.0); HEMOGLOBIN 12.9 g/dL (13.5-17.5); IMMATURE GRANULOCYTES 0.5 % (0-5); LYMPHOCYTES 13.7 % (15-50); MCH 33.6 pg (26.0-34.0); MCHC 33.7 g/dL (31.0-37.0); MCV 99.7 fL (80.0-100.0); MEAN PLATELET VOLUME 8.9 fL (7.4-10.4); MONOCYTES 6.1 % (2-11); NEUTROPHILS 77.5 % (40-80); RBC 3.84 10x6/uL (4.20-6.10); RDW 17.2 % (11.5-14.5); WBC 4.1 10x3/uL (4.8-10.8)
[2016-07-21 16:50] LABS: PLATELET COUNT 135 10x3/uL (130-400)
[2016-07-21 16:57] LABS: APPEARANCE CLEAR (CLEAR); BILIRUBIN NEGATIVE (NEGATIVE); COLOR DK YELLOW (YELLOW); GLUCOSE NEGATIVE (NEGATIVE); KETONE LARGE mg/dL (NEGATIVE); LEUKOCYTE ESTERASE TRACE (NEGATIVE); NITRITE POSITIVE (NEGATIVE); PROTEIN 1+ mg/dL (NEGATIVE); UROBILINOGEN NORMAL (NORMAL)
[2016-07-21 17:00] LABS: RED CELLS - URINE 0-5 /hpf (0-5)
[2016-07-21 17:01] LABS: BACTERIA MODERATE /hpf (NONE SEEN); CALCIUM OXALATE CRYSTALS OCC /hpf (NONE SEEN); EPITHELIAL CELLS 0-5 /hpf (0-5); MUCUS <1+ /lpf (NONE SEEN)
[2016-07-21 17:37] LABS: ALBUMIN 2.3 g/dL (3.4-5.0); ALKALINE PHOSPHATASE 78 U/L (46-116); ALT (SGPT) 178 U/L (10-68); BILIRUBIN - TOTAL 1.09 mg/dL (0.2-1.3); CALC OSMOLALITY 271 mosm/kg (275-300); CARBON DIOXIDE 19.3 mmol/L (21.0-32.0); CHLORIDE - SERUM 103 mmol/L (98-107); CREATININE - SERUM 0.7 mg/dL (0.6-1.3); GLUCOSE 78 mg/dL (74-106); POTASSIUM - SERUM 3.3 mmol/L (3.5-5.1); PROTEIN - SERUM 6.7 g/dL (6.4-8.2); SODIUM 137 mmol/L (136-145); UREA NITROGEN 10 mg/dL (7-18); eGFR NON AFRICAN AMERICAN > 90 mL/min (90-120)
[2016-07-21 17:49] LABS: CALCIUM 6.9 mg/dL (8.5-10.1)
[2016-07-21 18:01] LABS: MAGNESIUM - SERUM 1.7 mg/dL (1.8-2.4)
[2016-07-21 18:04] LABS: CREATINE KINASE 890 UL (21-232)
[2016-07-21 18:05] LABS: TROPONIN-I 2.736 ng/mL (0.000-0.060)
--- NOTE | 2016-07-21 22:45 | NUR ---
PT REC'D TO CV05 VIA STRETCHER FROM ER. ICU MONITORS ESTAB. PT WITH SARTHAK FROM HOME, HAS HOME HEALTH. VERY THIN, SKIN INTACT, STAGE 1 TO COCCYX NOTED - CLEANED AND DRIED AND MEPILEX DSG APPLIED. L WRIST PIV PATENT. SEE NEW ORDERS. CM - SR/ST WITH OCC PVCS. PT WITH DIFFICULTY TALKING, BUT CAN COMMUNICATE AND ANSWER QUESTIONS. SEE HYDRO OPERATOR HISTORY AND ASSESSMENT.
[2016-07-21 22:50] VITALS: BP 106/68
[2016-07-21 23:00] VITALS: BP 104/40; BP 104/49
[2016-07-21 23:02] VITALS: BP 104/49; BMI 19.7
[2016-07-21 23:30] VITALS: BP 104/63
[2016-07-22] VITALS (36 sets, daily range): BP systolic 70–154; BP diastolic 46–92; Ht 170.2 cm; Wt 57.2 kg
--- NOTE | 2016-07-22 00:24 | NUR ---
PT REPOSITIIONED UP IN BED TO L SIDE WITH PILLOWS. DENIES PAIN OR NEEDS.
--- NOTE | 2016-07-22 01:30 | NUR ---
RESTING WITH EYES CLOSED, VSS. NO SIGN OF DISTRESS.
--- NOTE | 2016-07-22 03:17 | NUR ---
REASSESSMENT PER FLOWSHEET, NO ACUTE CHANGES. PT AWAKENS TO NAME. DENIES PAIN.. REPOSITIONED TO R SIDE WITH PILLOWS. VSS.
[2016-07-22 04:33] LABS: EOSINOPHILS 0.3 % (0-7); HEMATOCRIT 31.2 % (42.0-54.0); HEMOGLOBIN 10.5 g/dL (13.5-17.5); IMMATURE GRANULOCYTES 0.7 % (0-5); LYMPHOCYTES 15.9 % (15-50); MCH 33.1 pg (26.0-34.0); MCHC 33.7 g/dL (31.0-37.0); MCV 98.4 fL (80.0-100.0); MEAN PLATELET VOLUME 8.5 fL (7.4-10.4); MONOCYTES 6.4 % (2-11); NEUTROPHILS 75.7 % (40-80); PLATELET COUNT 127 10x3/uL (130-400); RBC 3.17 10x6/uL (4.20-6.10); RDW 17.3 % (11.5-14.5)
[2016-07-22 04:51] LABS: ALBUMIN 1.9 g/dL (3.4-5.0); ALKALINE PHOSPHATASE 62 U/L (46-116); ALT (SGPT) 149 U/L (10-68); BILIRUBIN - TOTAL 0.98 mg/dL (0.2-1.3); CARBON DIOXIDE 18.8 mmol/L (21.0-32.0); CHLORIDE - SERUM 104 mmol/L (98-107); CREATININE - SERUM 0.6 mg/dL (0.6-1.3); POTASSIUM - SERUM 3.3 mmol/L (3.5-5.1); PROTEIN - SERUM 5.9 g/dL (6.4-8.2); SODIUM 135 mmol/L (136-145); UREA NITROGEN 10 mg/dL (7-18); eGFR NON AFRICAN AMERICAN > 90 mL/min (90-120)
[2016-07-22 04:58] LABS: CALC OSMOLALITY 269 mosm/kg (275-300); CALCIUM 6.9 mg/dL (8.5-10.1); GLUCOSE 113 mg/dL (74-106)
--- NOTE | 2016-07-22 05:01 | NUR ---
PT UP IN BED, USING ORAL CARE KIT WITH SXN DEVICE INDEPENDENTLY
--- NOTE | 2016-07-22 06:00 | NUR ---
PT REPOSITIONED FOR COMFORT, HEELS BRIDGED. PT CONT TO USE YANKAUER NEEDED. VSS.
--- NOTE | 2016-07-22 08:45 | NUR ---
REC'D CARE OF PT. GREG JOSHUA BUT IS A&O.
[2016-07-22 09:19] LABS: INR 1.35 (0.85-1.17); PROTIME 16.5 SECONDS (11.6-15.0)
--- NOTE | 2016-07-22 09:20 | NUR ---
AHMET GOLDENN HERE WITH CARDIOLOGY.
--- NOTE | 2016-07-22 09:34 | NUR ---
INITIAL ASSESSMENT COMPLETED.
--- NOTE | 2016-07-22 10:12 | NUR ---
fentanyl patch on left hip
--- NOTE | 2016-07-22 11:00 | NUR ---
REASSESSMENT COMPLTED PER FLOW SHEET. NO ACUTE CHANGES.
[2016-07-22 11:28] LABS: ALBUMIN 2.1 g/dL (3.4-5.0); ALKALINE PHOSPHATASE 66 U/L (46-116); ALT (SGPT) 154 U/L (10-68); BILIRUBIN - TOTAL 0.92 mg/dL (0.2-1.3); CALC OSMOLALITY 273 mosm/kg (275-300); CARBON DIOXIDE 20.3 mmol/L (21.0-32.0); CHLORIDE - SERUM 106 mmol/L (98-107); CREATININE - SERUM 0.7 mg/dL (0.6-1.3); GLUCOSE 120 mg/dL (74-106); POTASSIUM - SERUM 3.3 mmol/L (3.5-5.1); PROTEIN - SERUM 6.3 g/dL (6.4-8.2); SODIUM 137 mmol/L (136-145); UREA NITROGEN 10 mg/dL (7-18); eGFR NON AFRICAN AMERICAN > 90 mL/min (90-120)
[2016-07-22 11:39] LABS: BASOPHILS 0.7 % (0.0-2.0); EOSINOPHILS 0.7 % (0-7); HEMATOCRIT 31.7 % (42.0-54.0); HEMOGLOBIN 10.8 g/dL (13.5-17.5); IMMATURE GRANULOCYTES 0.3 % (0-5); LYMPHOCYTES 14.7 % (15-50); MCH 33.6 pg (26.0-34.0); MCHC 34.1 g/dL (31.0-37.0); MCV 98.8 fL (80.0-100.0); MEAN PLATELET VOLUME 9.3 fL (7.4-10.4); MONOCYTES 9.3 % (2-11); NEUTROPHILS 74.3 % (40-80); PLATELET COUNT 149 10x3/uL (130-400); RBC 3.21 10x6/uL (4.20-6.10); RDW 17.5 % (11.5-14.5)
--- NOTE | 2016-07-22 11:54 | NUR ---
SPOKE WITH DR. GUZMAN'S OFFICE ABOUT CONSULT. HE IS [place]. IF WE WANT HIM TO SEE AN ENT NOW HE HAS TO BE TRANSFERED TO [facility] SO DR. HARRINGTON CAN SEE HIM. I WILL CALL DR. OWUSU AND DISCUSS WITH HIM WHAT HE WANTS TO DO.
--- NOTE | 2016-07-22 12:00 | NUR ---
FAMILY AT BEDSIDE. UPDATED.
--- NOTE | 2016-07-22 12:06 | NUR ---
SPOKE WITH DR. QUICK ABOUT DR. GUZMAN IS OUT OF TOWN UNTIL WEDNESDAY. DR. QUICK SAID THAT IS WAS OK TO WAIT UNTIL WEDNESDAY FOR CONSULT.
--- NOTE | 2016-07-22 13:50 | NUR ---
DC'D LEFT WRIST 22 GAUGE PIV. STARTING TO LEAK. STARTED 20 GAUGE X1 STICK AT RIGHT FOREARM.
--- NOTE | 2016-07-22 14:49 | NUR ---
REASSESSMENT COMPLETED. NO ACUTE CAHNGES.
--- NOTE | 2016-07-22 15:21 | NUR ---
PRE TISSUE PACKER MEDS ADMN. PT. STATED "I AM NERVOUS ABOUT THE SURGERY". I TALKED WITH HIM AWHILE ABOUT THE PRECEDURE. EXPLAINING TO HIM THAT IS WASNT SURGERY THAT IS WAS DONE IN THE TISSUE PACKER. I TOLD HIM THAT THEY WERE RISK INVOLVED WITH ANY PROCEDURE BUT WE WERE GOING TO TAKE GOOD CARE OF HIM AND THE RISK WAS LOW USUALLY TO HAVE THIS DONE. HE STATED "OK". HE FELT BETTER ABOUT THE PROCEDURE. CONTINUES TO BE DYSPHASIC.
--- NOTE | 2016-07-22 15:35 | NUR ---
TO CHIMNEY SWEEPER
--- NOTE | 2016-07-22 16:50 | NUR ---
BACK FROM GAME PROGRAMMER. DID NOT DO PROCEDURE. PT. CANNOT SWALLOW. COULD NOT GIVE PLAVIX AFRERWARDS SO SWALLOWING ISSUIE HAS TO BE ADDRESSED FIRST.
--- NOTE | 2016-07-22 16:50 | NUR ---
TACHYPNEIC. RR 34 AND LABORED. SEDATED. VSS.
--- NOTE | 2016-07-22 17:23 | NUR ---
PULLING AT LINES. TALKED TO HIM AND HE SAID OK HE WOULD QUIT. VSS. SATTING 95% ON 2L VIA WV
--- NOTE | 2016-07-22 18:03 | NUR ---
TACHYPNEIC. 34 LABORED. SATTING 88. ELIZABETH RT INCREASED O2 TO 5L VIA NC.
--- NOTE | 2016-07-22 18:08 | NUR ---
MORE RESPONSIVE BUT CONTINUES TO PULL AT LINES. CIGARETTE PACKAGE EXAMINER AT BEDSIDE. ON 5L. RR 28 LESS LABORED AFTER INCREASE IN 02. SATTING 97%.
--- NOTE | 2016-07-22 18:45 | NUR ---
REFER TO CODE SHEET
--- NOTE | 2016-07-22 19:15 | NUR ---
PC TO DOCTOR ABDELRAHMAN, NOTIFIED OF CODE, STATES HE WILL SPEAK TO IN THE AM, NO OTHER INTERVENTION AT THIS TIME
[2016-07-22 19:18] LABS: BASOPHILS 0.4 % (0.0-2.0); EOSINOPHILS 0.1 % (0-7); HEMATOCRIT 33.3 % (42.0-54.0); IMMATURE GRANULOCYTES 2.5 % (0-5); LYMPHOCYTES 16.1 % (15-50); MCH 33.6 pg (26.0-34.0); MEAN PLATELET VOLUME 9.1 fL (7.4-10.4); MONOCYTES 4.8 % (2-11); NEUTROPHILS 76.1 % (40-80); RBC 3.27 10x6/uL (4.20-6.10); RDW 17.4 % (11.5-14.5)
--- NOTE | 2016-07-22 19:25 | NUR ---
REC'D PT POST CODE ON VENT VIA 8.0 ETT TAPED @ 26CM LIPLINE, SEE FLOWSHEET FOR VENT SETTINGS, PT WITHDRAWALS TO TACTILE STIMULATION BUT DOES NOT OPEN EYES OR FOLLOW COMMANDS AT THIS TIME, DR. NAJERA AT PLACING RIJ CVL, RIGHT FOREARM PIV WITH DOPAMINE @ 5MCG/KG/MIN, NEXTERONE @ 1MG/MIN, AND D5NS @ 125CC/HR, CM-ST @ 132 WITH OCCASIONAL PVC'S, [facility] PATENT DRAINING CONCENTRATED YELLOW URINE, PT THIN AND FRAIL IN APPEARANCE, BILAT SCD'S INTACT, BILAT SOFT WRIST RESTRAINTS PLACED AT THIS TIME.
[2016-07-22 19:37] LABS: MCV 101.8 fL (80.0-100.0); WBC 6.8 10x3/uL (4.8-10.8)
[2016-07-22 19:38] LABS: PLATELET COUNT 188 10x3/uL (130-400)
--- NOTE | 2016-07-22 19:50 | NUR ---
XRAY AT BS FOR CXR FOR LINE PLACEMENT
--- NOTE | 2016-07-22 20:00 | NUR ---
Mely ASHTON RN SPOKE WITH PT'S BY PHONE, WISHES PT TO BE DNR AT THIS TIME.
--- NOTE | 2016-07-22 20:00 | NUR ---
DIPRIVAN BEGUN @ 5MCG/KG/MIN AT THIS TIME.
[2016-07-22 20:11] LABS: ALBUMIN 1.9 g/dL (3.4-5.0); ALKALINE PHOSPHATASE 76 U/L (46-116); ALT (SGPT) 187 U/L (10-68); CHLORIDE - SERUM 104 mmol/L (98-107); CKMB 54.1 U/L (0.0-3.6); CREATINE KINASE 773 UL (21-232); POTASSIUM - SERUM 3.3 mmol/L (3.5-5.1); PROTEIN - SERUM 5.7 g/dL (6.4-8.2); SODIUM 133 mmol/L (136-145); UREA NITROGEN 10 mg/dL (7-18)
[2016-07-22 20:15] LABS: CALC OSMOLALITY 279 mosm/kg (275-300); CREATININE - SERUM 0.9 mg/dL (0.6-1.3); GLUCOSE 361 mg/dL (74-106); eGFR NON AFRICAN AMERICAN 86 mL/min (90-120)
--- NOTE | 2016-07-22 20:16 | NUR ---
DR. ABDELRAHMAN CHILDRESS
[2016-07-22 20:17] LABS: CALCIUM 6.3 mg/dL (8.5-10.1); TROPONIN-I 2.692 ng/mL (0.000-0.060)
--- NOTE | 2016-07-22 20:20 | NUR ---
DR. QUICK INFORMED OF 'S WISHSES TO MAKE PT A DNR, ORDER REC'D TO CHANGE CODE STATUS AT THIS TIME.
--- NOTE | 2016-07-22 20:25 | NUR ---
RT AT BS FOR ABG, PEEP ADJUSTED TO 8 AT THIS TIME, TITRATING DOPAMINE FOR EFFECT SBP 70'S.
--- NOTE | 2016-07-22 20:35 | NUR ---
DR. JONES NOTIFIED OF CONSULT, NEW ORDERS REC'D.
--- NOTE | 2016-07-22 20:50 | NUR ---
DR. PETERS NOTIFIED OF PT'S CODE AND CURRENT CONDITION, NO NEW ORDERS REC'D AT THIS TIME.
--- NOTE | 2016-07-22 21:15 | NUR ---
CM-ST @ 135, BP TRENDING 70'S, LEVOPHED BEGUN @ 5MCG, WILL WEAN DOPAMINE OFF TOLERATED.
--- NOTE | 2016-07-22 22:00 | NUR ---
PT REPOSITIONED UP IN BED, PT CONTINUES TO NOT FOLLOW COMMANDS, DIPRIVAN ON LOW D0SE, TITRATING DOPAMINE AND LEVOPHED, WILL CONT TO MONITOR CLOSELY FOR CHANGES.
--- NOTE | 2016-07-22 22:38 | NUR ---
CVL OKAY TO USE PER DR. JAVIER IN RADIOLOGY, NEW TUBING STRUNG AND IVF'S MOVED TO [facility].
--- NOTE | 2016-07-22 23:30 | NUR ---
REASSESSMENT COMPLETED, CM-SR @ 94 WITH OCCASIONAL PVC'S, WEANING DOPAMINE AND INCREASING LEVOPHED, PT AROUSES TO VERBAL STIMULI BUT CONTINUES TO NOT FOLLOW COMMANDS, SR UP X 2, BILAT SOFT WRIST RESTRAINTS INTACT.
[2016-07-23] VITALS (71 sets, daily range): BP systolic 44–148; BP diastolic 20–89
--- NOTE | 2016-07-23 02:00 | NUR ---
PT RESTING ON VENT, VSS, LEVOPHED CONTINUES, VISIBLE TO NURSES STATION.
--- NOTE | 2016-07-23 04:00 | NUR ---
COMPLETE BATH AND LINEN CHANGE PROVIDED, DRSG TO COCCYX CDI, RIJ CVL PRESSURE DRSG REMOVED, SITE CLEANED WITH CHLORAPREP, BIOPATCH APPLIED AND COVERED WITH TEGADERM, PT REPOSITIONED UP IN BED, TOLERATED WELL.
--- NOTE | 2016-07-23 04:30 | NUR ---
RADIOLOGY AT BS FOR AM CXR.
--- NOTE | 2016-07-23 05:10 | NUR ---
PT REPOSITIONED UP AND ONTO RIGHT SIDE SUPPORTED WITH PILLOWS, HEELS BRIDGED, BP STABLE, WILL CONT TO MONITOR CLOSELY FOR CHANGES.
[2016-07-23 06:00] LABS: BASOPHILS 0.2 % (0.0-2.0); EOSINOPHILS 0 % (0-7); HEMOGLOBIN 10.9 g/dL (13.5-17.5); LYMPHOCYTES 9.6 % (15-50); MCH 33.6 pg (26.0-34.0); MCHC 34.1 g/dL (31.0-37.0); MEAN PLATELET VOLUME 8.9 fL (7.4-10.4); MONOCYTES 7.9 % (2-11); NEUTROPHILS 81.3 % (40-80); PLATELET COUNT 173 10x3/uL (130-400); RBC 3.24 10x6/uL (4.20-6.10); RDW 17.7 % (11.5-14.5); WBC 5.8 10x3/uL (4.8-10.8)
--- NOTE | 2016-07-23 06:00 | NUR ---
NO VISITORS IN AT THIS TIME.
[2016-07-23 06:12] LABS: MCV 98.8 fL (80.0-100.0)
[2016-07-23 06:24] LABS: ALBUMIN 1.8 g/dL (3.4-5.0); ALKALINE PHOSPHATASE 61 U/L (46-116); ALT (SGPT) 171 U/L (10-68); BILIRUBIN - TOTAL 0.73 mg/dL (0.2-1.3); CARBON DIOXIDE 21.5 mmol/L (21.0-32.0); CHLORIDE - SERUM 107 mmol/L (98-107); CREATININE - SERUM 0.8 mg/dL (0.6-1.3); POTASSIUM - SERUM 3.1 mmol/L (3.5-5.1); PROTEIN - SERUM 5.8 g/dL (6.4-8.2); SODIUM 137 mmol/L (136-145); UREA NITROGEN 11 mg/dL (7-18); eGFR NON AFRICAN AMERICAN > 90 mL/min (90-120)
[2016-07-23 06:25] LABS: CALC OSMOLALITY 275 mosm/kg (275-300); GLUCOSE 160 mg/dL (74-106)
[2016-07-23 06:26] LABS: CALCIUM 6.2 mg/dL (8.5-10.1)
--- NOTE | 2016-07-23 08:00 | NUR ---
SHIFT ASSESSMENT VIA FLOWSHEET, SEE FOR DETAILS. VSS, SR ON CM.
--- NOTE | 2016-07-23 10:56 | NUR ---
Patient Name: NEGRO HERNANDEZ Admission Status: ER Accout number: [id number] Admission Date: 07-21-2016 : 1935 Admission Diagnosis: Attending: MARKO Current LOS: 2 Anticipated DC Date: UNSURE Planned Disposition: UNSURE Primary Insurance: MEDICARE A & B Is the patient Alert and Oriented? No * How many steps to enter\exit or inside your home? NONE * PCP DR SIMMONS IN [place] / DR ALEGRIA * Pharmacy [facility] * Preadmission Environment Home with Family * ADLs Partial Dependent * Partial ADLs (Assistance needed) Ambulation Bathing Medication Management Toileting * Equipment Shower Chair Walker * List name and contact numbers for known caregivers / representatives who currently or will assist patient after discharge: SHMUEL HERNANDEZ, SPOUSE, * Community resources currently utilized Home Health * Please name any agencies selected above. CURRENT HH WITH [facility] * Additional services required to return to the preadmission environment? Yes * Can the patient safely return to the preadmission environment? No * Has this patient been hospitalized within the prior 30 days at any hospital? No Discharge Planning Comments: CM SPOKE WITH PATIENT'S , SHMUEL HERNANDEZ, VIA TELEPHONE PATIENT IS CURRENTLY INTUBATED ON VENTILATOR. PT'S STATED THAT PRIOR TO THIS ADMISSION PATIENT WAS AT HOME WITH HER AND HAD HH SERVICES WITH [facility]. CM SPOKE TO [facility] AND THEY WERE AWARE THAT PATIENT HAD BEEN ADMITTED TO [facility]. PT'S IS UNSURE OF DC NEEDS AT THIS TIME, BUT STATED THAT IN THE LAST WEEK PRIOR TO THIS ADMISSION PATIENT WAS GETTING WEAKER AND LESS ABLE TO AMBULATE AND WAS MORE DEPENDENT IN HIS CARE/ADL'S. SHE STATED SHE WOULD LIKE TO SPEAK WITH DR QUICK TO GET HIS ASSISTANCE IN POST HOSPITAL PLANS. CM INFORMED PT'S THAT WE ARE AVAILABLE TO HER WHEN SHE IS READY TO DISCUSS DC NEEDS. CM WILL FOLLOW AND ASSIST WITH DC NEEDS THEY ARISE. Primer Waterproofing Machine Operator: Niki Puri RN, CM
--- NOTE | 2016-07-23 11:30 | NUR ---
PT'S AT BEDSIDE, LIVING WILL PROVIDED.
--- NOTE | 2016-07-23 11:35 | NUR ---
SPOKE WITH DR JONES VIA PHONE REGARDING PT 'S WISHES TO EXTUBATE. INSTRUCTED TO CONTACT DR OWUSU FOR FINAL INSTRUCTIONS.
--- NOTE | 2016-07-23 11:53 | NUR ---
SPOKE WITH DR OWUSU VIA PHONE. AGREES WITH EXTUBATION AND HOSPICE IF APPROPRIATE.
--- NOTE | 2016-07-23 12:00 | NUR ---
SEDATION DECREASED. PT GRIMACES, AND FOLLOWS COMMAND TO SQUEEZE HAND.
--- NOTE | 2016-07-23 12:10 | NUR ---
SPOKE WITH ELIZABETH MIXON RT VIA PHONE INFORMED OF PT STATUS.
--- NOTE | 2016-07-23 12:17 | NUR ---
PER FAMILY WISHES AND PT LIVING WILL, EXTUBATION WILL PROCEED PER PROTOCOL.
--- NOTE | 2016-07-23 13:01 | NUR ---
CM RECEIVED CALL FROM RAKESH ESTEVEZ IN CVICU TO INFORM THAT PATIENT'S IS AT HIS BEDSIDE AND WOULD LIKE TO DISCUSS HOSPICE. CM SPOKE WITH PT'S AT BEDSIDE. SHE STATED THAT SHE HAS MADE THE DECISION TO EXTUBATE HER AND SHE INQUIRED ABOUT HOSPICE SERVICES. SHE ASKED ABOUT INPATIENT HOSPICE CARE OPTIONS IN [place]. CM INFORMED PT'S SPOUSE THAT [facility] IS THE AGENCY FOR INPATIENT HOSPICE AT [place] AND THAT [facility] IS THE AGENCY FOR INPATIENT HOSPICE AT [facility]. MRS HERNANDEZ STATED THAT SHE DOES NOT WANT TO MOVE HER TO [facility] AND WOULD LIKE FOR HIM TO STAY AT [facility] IF POSSIBLE FOR INPATIENT HOSPICE CARE. SHE ASKED IF SHE COULD SPEAK TO A LIAISON FROM [facility] TO INFORM HER OF DETAILS OF HOSPICE CARE. CM ASKED IF SHE WOULD LIKE TO HAVE LIAISON FROM BOTH [facility] AND [facility] COME TO SPEAK TO HER AND SHE STATED SHE ONLY WANTED TO SPEAK TO [facility] AT THIS TIME. CM PLACED CALL TO [facility] AND SPOKE TO [facility] TO INFORM OF REFERRAL FOR LIAISON TO SPEAK TO PT'S REGARDING HOSPICE SERVICES. CM FAXED REFERRAL TO [facility] AT FAX NUMBER PROVIDED BY [facility] [phone]. CM WILL COORDINATE WITH [facility] LIAISON WHEN HE/SHE ARRIVES TO SPEAK WITH PT'S . CM WILL FOLLOW AND ASSIST WITH DC PLAN. RA SANTILLAN RN, IRMA
--- NOTE | 2016-07-23 13:20 | NUR ---
PT EXTUBATED PER RT. VSS, 99% ON 2L NC.
--- NOTE | 2016-07-23 13:57 | NUR ---
PT EATING ICE CHIPS WITH ASSIST. PT DENIES PAIN AT THIS TIME. WEANING LEVOPHED AT PT TOLERATES. WILL CONTINUE TO MONITOR CLOSELY.
--- NOTE | 2016-07-23 14:23 | NUR ---
HOSPICE BOOT AND SADDLE REPAIR PERSON HERE TO SPEAK WITH FAMILY.
--- NOTE | 2016-07-23 16:06 | NUR ---
PT REPOSITIONED FOR COMFORT. VSS, SR ON CM.
--- NOTE | 2016-07-23 16:28 | NUR ---
DESAT VIA ALARM. ENTERED ROOM TO FIND PT WITH AGONAL RESPIRATIONS, DIAPHORETIC AND HYPOTENSIVE. PT DNR, COMFORT MEASURES IMPLEMENTED PER ORDER.
--- NOTE | 2016-07-23 16:30 | NUR ---
CALLED PT'S [phone], UNABLE TO REACH, LEFT MESSAGE TO CALL HOSPITAL.
--- NOTE | 2016-07-23 17:35 | NUR ---
ORAL CARE PROVIDED, PT STATES HE WANTS TO "TAKE A NAP." BED ADJUSTED TO PT'S DESIRED LEVEL OF COMFORT. VSS AT THIS TIME. SR ON CM WITH OCC PVCs.
--- NOTE | 2016-07-23 17:44 | NUR ---
PT DESAT ALARM, PT STATUS VISIBLY DETERIORATING. CALL MADE TO PT'S , KARLENE, AND INFORMED OF DECLINE IN PATIENT STATUS. STATES SHE DOES NOT WISH TO RETURN TO HOSPITAL AT THIS TIME.
--- NOTE | 2016-07-23 18:06 | NUR ---
PT WITHOUT RESPIRATIONS, ASYSTOLE ON MONITOR AND WITHOUT PALPABLE PULSE.
--- NOTE | 2016-07-23 18:10 | NUR ---
NOTIFIED PT'S VIA PHONE OF PT PASSING.
--- NOTE | 2016-07-23 18:15 | NUR ---
SPOKE WITH [facility], AND REPORTED PATIENT PASSING.
--- NOTE | 2016-07-23 18:24 | NUR ---
SPOKE WITH DR QUICK VIA PHONE, NOTIFIED OF PT'S PASSING. WISHES TO DEFER PRONOUNCING OF TO ER PHYSICIAN. DR QUICK TRANSFERED TO ER TO MAKE REQUEST.
--- NOTE | 2016-07-23 19:30 | NUR ---
POST MORTEM CARE COMPLETE.
--- NOTE | 2016-07-23 19:44 | NUR ---
[facility] HERE TO PICKUP PATIENT.
--- NOTE | 2016-07-24 13:49 | CN ---
PATIENT NAME:NEGRO MOLINA MEDICAL RECORD: [id number] : 34 LOCATION:DCHERRY[facility].[id number] ADMIT DATE: 07/21/16 ACCOUNT: [id number] CONSULTING PHYSICIAN: YOEL JONES MD REFERRING PHYSICIAN: UYEN ARAIZA MD DATE OF CONSULTATION: 07/23/2016 REQUESTING PHYSICIAN: Dr. Uyen Araiza. REASON FOR CONSULTATION: Acute respiratory failure, vent management status post CODE BLUE. HISTORY OF PRESENT ILLNESS: Mr. Molina is an 80-year-old gentleman who has a history of multiple myeloma hospitalized with SVT and non-Q AK. The patient's heart rate was controlled. Also, he was hypertensive and heart rate was controlled with Cardizem. Last evening, the patient was not breathing, V-fib and V-tach and the patient was coded. The patient was resuscitated and intubated. The history was taken mainly by reviewing the patient's note and talking to the nursing staff. PAST MEDICAL HISTORY: 1. Multiple myeloma. 2. Recent hypocalcemia. 3. Soft tissue mass in the oropharynx. PAST SURGICAL HISTORY: The detail is not obtainable. ALLERGIES: HE IS ALLERGIC TO SULFA. PRESENT MEDICATIONS: On [employer] is reviewed. The patient was on Levaquin recently. PERSONAL AND SOCIAL HISTORY: The patient is a nonsmoker and nondrinker. FAMILY HISTORY: Significant for CVA and neurological disorder. PHYSICAL EXAMINATION: GENERAL: Now, the patient is orally intubated and sedated. VITAL SIGNS: The blood pressure is 95/59, pulse is 77, respirations 17, temperature is 98.1, and SPO2 is 100% on 40% oxygen on mechanical ventilation. HEENT: Conjunctiva is pale. Sclerae not icteric. Pupils equal, round, and reactive to light. NECK: Supple, no JVD. CHEST: Excursion is minimal. There is no wheeze, no rales. The patient is orally intubated. HEART: Rate and rhythm is regular, normal sound, no murmur. ABDOMEN: Soft. Bowel sounds present. No hepatosplenomegaly. RECTAL: Deferred. EXTREMITIES: No cyanosis, no clubbing, no pedal edema. SKIN: Warm. CENTRAL NERVOUS SYSTEM: The patient is orally intubated and sedated. CHEST RADIOGRAPH: Last night, the ET tube is in good position. There are no infiltrates: CT scan of the soft tissue of the neck: There is complete opacification of the left frontal sinuses. There is a soft tissue mass in the CONSULT REPORT [id number] NEGRO MOLINA A right vallecula. LABORATORY DATA: CBC: The WBC is 5.8, hemoglobin 10.9, hematocrit 32, and the platelet count 173. Chemistry: Sodium 137, potassium 3.1, BUN is 11, creatinine 0.8, and glucose 160. IMPRESSION: 1. Acute respiratory failure status post code blue cardiopulmonary arrest. 2. Cardiac arrhythmia us. 3. Acute myocardial infarction. 4. Cardiogenic shock. 5. Multiple myeloma. 6. Hypokalemia. 7. Acute sinusitis. 8. Soft tissue mass in the oropharynx. RECOMMENDATION: We will continue the mechanical ventilation and adjust the setting. The patient is now DNR. Overall prognosis is poor. We will treat the sinusitis and follow up labs and chest radiograph and DVT and stress ulcer prevention. Continue the pressors to keep the systolic blood pressure above [address] Araiza, once again thanks for involving me in the care of Mr. Molina. TRANSINT:[id number] Voice Confirmation ID: [id number] DOCUMENT ID: [id number] YOEL JONES MD at 1349 CC: YE ALEGRIA MD [id number] DICTATION DATE: 07/23/16 0941 EXTRUSION PRESS OPERATOR: 07/23/16 1053 DIS IN 07/23/16 [id number] [place] [address]
--- NOTE | 2016-07-27 13:35 | NUR ---
Per CMS protocol, restraint report logged into data base.
--- NOTE | 2016-07-31 09:40 | OP ---
PATIENT NAME: NEGRO HERNANDEZ MEDICAL RECORD: [id number] :34 LOCATION:D.CVI D.CV05 ADMISSION DATE:07/21/16 SURGEON: MARTIN NAJERA MD DATE OF OPERATION: 07/22/2016 PREOPERATIVE DIAGNOSES: 1. Cardiopulmonary arrest. 2. Atrial fibrillation with rapid ventricular response. 3. Urinary tract infection. POSTOPERATIVE DIAGNOSES: 1. Cardiopulmonary arrest. 2. Atrial fibrillation with rapid ventricular response. 3. Urinary tract infection. PROCEDURE: Insertion of right internal jugular triple lumen central venous catheter. SURGEON: Martin Najera MD. EXECUTIVE SECRETARY: None. BLOOD LOSS: Minimal. ANESTHESIA: Local. COMPLICATIONS: None. PROCEDURE IN DETAIL: The consent could not be obtained due to the urgency of the situation. The patient has suffered a cardiopulmonary arrest. I arrived at the [facility] resuscitation. Additional IV access was necessary and Dr. Bryant asked me to place a central venous line. The right neck was sterilely prepped and draped. Local anesthetic was used to infiltrate the skin and subcutaneous tissues at the base of the right neck. The right internal jugular vein was percutaneously accessed in an antegrade fashion. A guidewire was passed easily. A small skin shannan was accomplished. A vessel dilator was used to dilate a subcutaneous tract. A 20-cm triple lumen central venous catheter was inserted to about 16 cm. It was sutured in place times 3. All lumens flushed easily and aspirated dark, nonpulsatile blood. A stat portable chest x-ray is pending. I have told the nursing staff that they can begin using the central venous line immediately due to the urgency of the situation. TRANSINT:[id number] Voice Confirmation ID: [id number] DOCUMENT ID: [id number] MARTIN NAJERA MD at 0940 CC: [id number] DICTATION DATE: 07/23/16 0853 PLUG AND MOLD FINISHER: 07/23/16 0956 DIS IN 07/23/16 [facility] [address] [place] [address]
== END 2016-07-23 19:50 ==
LOC: D.ER 15:27 → D.CVICU 21:56
PROVIDERS: Emergency Medicine; Internal Medicine Interventional Cardiology; Legal Medicine; ADMIT Internal Medicine Hematology
PROC: 5A12012 Performance of Cardiac Output, Single, Manual (ICD-10-PCS; 2016-07-22)
PROC: 0BH17EZ Insertion of Endotracheal Airway into Trachea, Via Natural or Artificial Opening (ICD-10-PCS; 2016-07-22)
PROC: 5A1945Z Respiratory Ventilation, 24-96 Consecutive Hours (ICD-10-PCS; 2016-07-22)
PROC: 05HM33Z Insertion of Infusion Device into Right Internal Jugular Vein, Percutaneous Approach (ICD-10-PCS; principal; 2016-07-22 14:15)
DX: I48.91 Unspecified atrial fibrillation (principal); J96.00 Acute respiratory failure, unspecified whether with hypoxia or hypercapnia; I21.4 Non-ST elevation (NSTEMI) myocardial infarction; E43 Unspecified severe protein-calorie malnutrition; N39.0 Urinary tract infection, site not specified; B37.0 Candidal stomatitis; Z68.1 Body mass index [BMI] 19.9 or less, adult; R13.10 Dysphagia, unspecified; I46.9 Cardiac arrest, cause unspecified; J39.2 Other diseases of pharynx; E83.42 Hypomagnesemia; E86.0 Dehydration; R62.7 Adult failure to thrive; E87.6 Hypokalemia; Z66 Do not resuscitate; J32.9 Chronic sinusitis, unspecified; R57.0 Cardiogenic shock; Z85.79 Personal history of other malignant neoplasms of lymphoid, hematopoietic and related tissues